=== PATIENT | male | born 2000 | race Asian ===

== ENCOUNTER 2018-01-07 16:30 | Emergency (ER) | payer OTHER ==
[2018-01-07 16:39] VITALS: BP 106/65
--- NOTE | 2018-01-07 16:57 | EDPHY ---
General Time Seen by Provider: 01/07/18 16:51 Narrative: CHIEF COMPLAINT: "I have a cold" HISTORY OF PRESENT ILLNESS: Patient presents with complaints of "I have a cold and really sore throat." Symptoms started last night. [id number]. Constant duration. Minimal cough. No headache. No runny nose. No ear pain. No abdominal pain. No nausea or vomiting. He says the throat is so severe chart for him to eat or drink. He has no difficulty breathing or swallowing. No shortness of breath. No drooling. No difficulty conversing. No problems opening closing his mouth. No other associated complaints or modifying factors REVIEW OF SYSTEMS: 10 systems were reviewed and negative with the exception of the elements mentioned in the history of present illness. PCP: [facility] SPECIALISTS: None PAST MEDICAL HISTORY: None PAST SURGICAL HISTORY: None SOCIAL HISTORY: [employer] student. Originally from [facility]. FAMILY HISTORY: Noncontributory EXAMINATION: General Appearance: Alert, no distress Head: normocephalic, atraumatic Eyes: Pupils equal and round, no conjunctival pallor or injection ENT, Mouth: Mucous membranes moist uvula is midline. The posterior pharynx is erythematous with symmetric exudates. There is no asymmetry of the tonsils. The airway is widely patent without trismus. No drooling. Neck: Normal inspection, supple, no midline tenderness. No meningismus. Midline trachea. Tender anterior cervical lymphadenopathy. Respiratory: Lungs are clear to auscultation. No rhonchi or crackles Cardiovascular: Regular rate and rhythm. No murmur Gastrointestinal: Abdomen is soft and nontender Neurological: A&O, nonfocal, normal gait Skin: Warm and dry, no rash Extremities: Nontender, no pedal edema Psychiatric: Mood and affect normal DIFFERENTIAL DIAGNOSES: Including but not limited to strep pharyngitis, viral pharyngitis, upper respiratory infection, lower respiratory infection MDM: 4:55 p.m. Acute pharyngitis with possible upper respiratory infection as well. He is well -appearing. He is in no acute distress. Vital signs are within normal limits. He has no evidence of pneumonia by auscultation. He has a normal abdominal examination. No rash. No meningismus. Rapid strep test was sent prior to my examination, but I do feel he clinic warrants treatment regardless of the rapid strep test results. We discussed short course of antibiotics and over-the- counter medications. We discussed ED precautions for headache, neck pain or stiffness, intractable fever chest pain. He is comfortable this plan discharged home stable condition per SUPERVISION: This patient was independently evaluated without direct involvement of or examination by the attending physician. CONSULTATION: None - History Smoking Status: Never smoked - Objective Vital Signs: Initial Vital Signs Temperature (C) 97.9 F 01/07/18 16:36 Heart Rate 78 01/07/18 16:36 Respiratory Rate 17 01/07/18 16:36 Blood Pressure 106/65 01/07/18 16:36 O2 Sat (%) 95 01/07/18 16:36 Allergies/Adverse Reactions: No Known Allergies Allergy (Unverified 01/07/18 16:36) Home Medications: Medication Instructions Recorded Azithromycin [Zithromax] 250 mg PO DAILY #6 tab 01/07/18 Departure - Departure Disposition: Home, Routine, Self-Care Clinical Impression: Acute pharyngitis Qualifiers: Pharyngitis/tonsillitis etiology: unspecified etiology Qualified Code(s): J02.9 - Acute pharyngitis, unspecified Condition: Good Instructions: Pharyngitis (ED), Upper Respiratory Infection (ED) Additional Instructions: 1. Antibiotic medication once daily for 5 days as prescribed 2. Ibuprofen 600 mg every 8 hr as needed 3. Mucinex [id number], 1200 mg every 12 hr for congestion 4. ED precautions as discussed Referrals: [facility],. [Clinic] - As per Instructions Physician,Emergency Dept, [Medical Doctor] - As per Instructions Stand Alone Forms: School Excuse Prescriptions: Azithromycin [Zithromax] 250 mg PO DAILY #6 tab
== END 2018-01-07 17:12 | disposition home or self-care (01) ==
DX: J02.9 Acute pharyngitis, unspecified (principal)